=== PATIENT | female | born 1955 | race Asian ===

== ENCOUNTER 2019-11-24 09:03 | Outpatient (REF) | payer SELFPAY ==
[2019-11-24 13:41] LABS: Anion Gap 7.8 mmol/L (3-11); BUN 15 mg/dL (7-18); CO2 30.2 mmol/L (21.0-32.0); CREATININE 0.56 mg/dL (0.55-1.02); Calculated LDL 129 mg/dL; Chloride 106 mmol/L (98-107); Cholesterol 200 mg/dL (<200); Glucose 90 mg/dL (74-106); HDL Cholesterol 63 mg/dL (40-60); Potassium 3.9 mmol/L (3.5-5.1); Sodium 144 mmol/L (136-145); Triglyceride 41 mg/dL (<150)
== END 2019-11-24 09:23 ==
LOC: LBN 09:03
PROVIDERS: PCP Internal Medicine; Visit Provider Internal Medicine
DX: I10 Essential (primary) hypertension (principal)
CPT/HCPCS: 80048; 80061

== ENCOUNTER 2020-12-27 09:42 | Outpatient (REF) | payer SELFPAY ==
[2020-12-27 14:20] LABS: Anion Gap 4.7 mmol/L (3-11); BUN 12 mg/dL (7-18); CO2 29.3 mmol/L (21.0-32.0); CREATININE 0.6 mg/dL (0.55-1.02); Calculated LDL 115 mg/dL (<100); Chloride 105 mmol/L (98-107); Cholesterol 186 mg/dL (<200); Glucose 80 mg/dL (74-106); HDL Cholesterol 61 mg/dL (40-60); Potassium 3.8 mmol/L (3.5-5.1); Sodium 139 mmol/L (136-145); Triglyceride 50 mg/dL (<150)
== END 2020-12-27 09:43 | disposition home or self-care (01) ==
LOC: LBN 09:42
PROVIDERS: PCP Internal Medicine; Visit Provider Internal Medicine
DX: I10 Essential (primary) hypertension (principal)
CPT/HCPCS: 80048; 80061

== ENCOUNTER 2022-04-28 20:55 | Emergency (ER) | payer MEDICARE, SELFPAY ==
[2022-04-28 21:04] VITALS: BP 193/91; PULSE 71; RESP 16; TEMP 35.8; O2SAT 96
--- NOTE | 2022-04-28 21:15 | DI.RAD_ITS ---
Exam(s) XR ELBOW LT COMPLETE EXAM: XR ELBOW LT COMPLETE CLINICAL HISTORY: fall, elbow pain. TECHNIQUE: 2D digital imaging was performed. Three views. COMPARISON: No exams were available for comparison FINDINGS: BONES: No acute fracture is present. No bony destructive lesion is seen. JOINTS: The elbow is normally aligned. No joint effusion is seen. SOFT TISSUE: Normal. IMPRESSION: Unremarkable radiographs of the left elbow. DATA REPOSITORY: RADIATION DOSE DELIVERED:
[2022-04-28] MEDS: Acetaminophen 325 MG TAB 650 MG PO (21:29)
--- NOTE | 2022-04-28 21:30 | W.ED.GENAD ---
Discharge Plan Disposition Patient Disposition: HOME Condition: Improving Discharge Details Chief Complaint: Orthopedic Clinical Impression: Contusion of elbow Primary Care Provider: Ching Perdue ED Provider: Gerber Burger Home Meds and New Rx's Prescriptions: No Action losartan-hydrochlorothiazide 100-12.5 mg tablet 1 tab PO DAILY Qty: 90 3RF Discharge Instructions Instructions: Contusion in Adults (ED) Additional Instructions: Ice and elevate the limb, continue to use ibuprofen and/or acetaminophen as needed for pain; keep wound clean and dry. Please return to the emergency department for any worsening symptoms such as inability to move your arm worsening pain worsening swelling or signs of infection. Medical Decision Making 67-year-old female presents after fall from standing position slipped back on her left elbow, sustained superficial abrasion to left elbow, pain to left elbow, full range of motion shoulder elbow wrist and hand/fingers, neurovascular exam of limb intact, no crepitus or deformity however given level of discomfort will obtain x-ray, will administer analgesia in the form of acetaminophen. Likely contusion with simple abrasion versus must consider fracture versus dislocation less likely. 22: 14 patient resting comfortably no acute distress. Range of motion intact. Neurovascularly intact. No evidence of fracture or dislocation. Bacitracin and dressing have been applied to elbow, patient to follow-up with primary care physician, return precautions given. Likely simple contusion with abrasion. HPI General Date/Time Provider Initiated Documentation: 04/28/22 20:56. HPI Narrative: 67-year-old female presents after falling from ground-level on her left elbow, sustaining superficial abrasion to left elbow, also endorses left hip discomfort that is now getting better on its own, elbow pain worse with movement, endorse that she likely has had a tetanus booster within the last 5 to 10 years, no head injury no other Related Data Home Medications Medication Instructions Recorded Confirmed losartan 100 1 tab PO DAILY #90 tab-caps 01/12/22 04/28/22 mg-hydrochlorothiazide 12.5 mg tablet Previous Rx's Medication Instructions Recorded losartan 100 1 tab PO DAILY #90 tab-caps 01/12/22 mg-hydrochlorothiazide 12.5 mg tablet Allergies Allergy/AdvReac Type Severity Reaction Status Date / Time No Known Drug Allergies Allergy Verified 04/28/22 21:12 General Stated Complaint: Orthopedic TONY: 4 Review of Systems Narrative: Review of Systems Constitutional: negative Eyes: negative ENT: negative Cardiovascular: negative Respiratory: negative Gastrointestinal: negative : negative Musculoskeletal: Left elbow pain Skin: Abrasion Neurologic: negative Psych: negative PFSH All Active Problems (Updated 04/28/22 @ 22:15 by Gerber Burger MD) Contusion of elbow (Acute) Does not have health insurance (Chronic) Diverticulosis of colon (Acute) mild colonoscopy 08/03/08 Hypertension (Acute) Medical History (Updated 04/28/22 @ 22:15 by Gerber Burger MD) Hypertension Kidney stone Surgical History Ligation of fallopian tube Family History Mother Essential hypertension Father , ulcer No problems noted. Sister No problems noted. Sister No problems noted. Sister No problems noted. Brother No problems noted. Social History (Updated 11/24/19 @ 08:54 by Araseli Jefferson LPN) Smoking/Tobacco Use Status: Never Smoking risk assessment performed?: Yes Alcohol Intake: current Alcohol Intake frequency: holidays/special occasions only Drug use: Never Substance use type: does not use Household members: spouse Housing: house Number of Children: 2 Communication Needs: None current occupation: restaurant plumber's assistant What is your relationship status?: Panel score (0-1 are the most socially isolated patients): 1 What type of physical activity do you participate in: none Seatbelt use: always Working smoke detector in home: Yes Carbon monox detector in home: Yes Do you feel safe at home: Yes Do you feel safe in your relationship?: Yes Exam Narrative Exam Narrative: Physical Examination General: alert, awake, cooperative, resting comfortably, no acute distress HEENT: normocephalic, atraumatic; PERRL, EOM intact, conjunctiva normal; no nasal discharge; moist mucous membranes, oral and pharyngeal mucosa normal, tolerating secretions Neck: supple, trachea midline; full ROM Chest: normal to inspection Respiratory: normal respiratory effort, speaking in full sentences, clear to auscultation, no wheezing, rales or rhonchi Cardiac: regular rate, regular rhythm, S1S2 intact, no murmurs rubs or gallops GI: abdomen soft, non-tender, non-distended; no palpable mass or hepatosplenomegaly Skin: Superficial non gaping linear abrasion to left elbow Neuro: AAOx3, normal speech, moving all extremities Extremities: Full range of motion left shoulder left wrist fingers, median radial and ulnar nerve distribution intact, radial pulse intact, soft compartments, no crepitus or deformity to upper extremity on the left, range of motion flexion extension and elbow intact, no effusion Psych: Appropriate mood and affect Course Vital Signs Vital signs: Vital Signs Temperature 35.8 C L 04/28/22 21:04 Pulse 71 04/28/22 21:04 Respiratory Rate 16 04/28/22 21:04 Blood Pressure 193/91 H 04/28/22 21:04 Pulse Oximetry 96 04/28/22 21:04 Temperature 35.8 C L 04/28/22 21:04 Temperature Source Temporal Artery Scan 04/28/22 21:04 Pulse 71 04/28/22 21:04 Respiratory Rate 16 04/28/22 21:04 Respiratory Effort Non-Labored 04/28/22 21:08 Blood Pressure 193/91 H 04/28/22 21:04 Blood Pressure Position Sitting 04/28/22 21:04 Pulse Oximetry 96 04/28/22 21:04 Oxygen Delivery Method Room Air 04/28/22 21:04 Oxygen Flow Rate 0 04/28/22 21:04 Pain Level 4 04/28/22 21:08 PAWSS Have you Been Recently Intoxicated or Drunk Within the Last 30 days?: No Have you Ever Experienced Previous Episodes of Alcohol Withdrawal?: No Have you ever Experienced Withdrawal Seizures?: No Have you ever Experienced Delirium Tremens(DT)s?: No Have you ever undergone Alcohol Rehabilitation Treatment (i.e, inpt ot outpatient treatment programs)?: No Have you ever Experienced Blackouts?: No Have you ever Combined Alcohol with other Downers within the last 90 days?: No Have you ever Combined Alcohol with any other Substance of Abuse during the last 90 days?: No Positive Blood Alcohol level on Presentation? [PCS.BAL]: No Evidence of Increased Autonomic Activity (i.e. HR>120, tremor, sweating, agitation, nausea)?: No Result: 0
--- NOTE | 2022-04-28 22:08 | DI.VRAD_ITS ---
PROCEDURE INFORMATION: Exam: XR Left Elbow Exam date and time: 04/28/2022 21:30 Age: 67 years old Clinical indication: Pain; Left; Patient HX: Fall, elbow TECHNIQUE: Imaging protocol: Radiologic exam of the Left elbow. Views: 3 or more views. COMPARISON: No relevant prior studies available. FINDINGS: Bones/joints: No acute fracture or subluxation. Soft tissues: No significant joint effusion. IMPRESSION: No acute bony pathology. Dictated and Authenticated by: Marlen Roberto MD. Ordering:SUYAPA aMyes MD
== END 2022-04-28 22:28 | disposition home or self-care (01) ==
PROVIDERS: Emergency Provider Emergency Medicine; PCP Internal Medicine
DX: S50.02XA Contusion of left elbow, initial encounter (principal); W18.39XA Other fall on same level, initial encounter
CPT/HCPCS: 99283; 73080

== ENCOUNTER 2022-05-01 11:53 | Outpatient (REF) | payer MEDICARE, SELFPAY ==
--- NOTE | 2022-05-01 11:00 | PAPFT_PTH ---
PATIENT: Jaime Cagle LOC: [facility] U#:[id number] AGE/SX: 67/F ROOM: RE05/01/[address]: Ching Perdue MD : 1955 BED: DIS: 05/01/2022 SPEC #: [id number] RECD: 05/01/22 17:27 STATUS: BRAIN REQ #: [id number] NICHOLAS: 05/01/22 11:[address]: Ching Perdue DEPT: [facility] Cytology RECD BY: Estephanie Malik Tissues: 1 - CX/ENDOCX FOR PAP SMEARS Procedures: PAP THIN PREP/[facility] Screening HPV DNA PROBE Comments: [id number]
== END 2022-05-01 11:54 | disposition home or self-care (01) ==
LOC: LBN 11:53
PROVIDERS: PCP Internal Medicine; Visit Provider Internal Medicine
DX: Z11.51 Encounter for screening for human papillomavirus (HPV); Z01.411 Encounter for gynecological examination (general) (routine) with abnormal findings
CPT/HCPCS: 88142; 87624

== ENCOUNTER → 2022-05-10 01:50 | Outpatient (CLI) | payer MEDICARE, SELFPAY ==
--- NOTE | 2022-05-10 06:45 | DI.DEXA_ITS ---
Exam(s) XR DEXA BONE DENSITY W/WO JULES EXAM: XR DEXA BONE DENSITY W/WO JULES CLINICAL HISTORY: SCREENING FOR OSTEOPOROSIS IN POSTMENOPAUSAL WOMAN,Z78.0 TECHNIQUE: COMPARISON: No exams were available for comparison FINDINGS: Lateral Spine Image: Unremarkable. No compression deformities identified. Left hip: Total T-Score: -1.9 Total Z-Score: -0.7 T- and Z-scores: The findings are consistent with osteopenia and increased fracture risk. There is o steoporosis in the femoral neck with a T-score of -2.6. Lumbar Spine: Total T-Score: -3.4 Total Z-Score: -1.6 T- and Z-scores: Findings are consistent with osteoporosis. IMPRESSION: Findings of osteoporosis in the lumbar spine and left femoral neck.
== END ==
PROVIDERS: PCP Internal Medicine; Visit Provider Internal Medicine
DX: M81.0 Age-related osteoporosis without current pathological fracture (principal); Z78.0 Asymptomatic menopausal state
CPT/HCPCS: 77080

== ENCOUNTER 2022-05-16 02:48 | Outpatient (CLI) | payer MEDICARE, SELFPAY ==
[2022-05-16 09:17] LABS: Anion Gap 5.1 mmol/L (3-11); BUN 19 mg/dL (7-18); CO2 31.9 mmol/L (21.0-32.0); CREATININE 0.6 mg/dL (0.55-1.02); Calcium 8.4 mg/dL (8.5-10.1); Calculated LDL 108 mg/dL (<100); Chloride 107 mmol/L (98-107); Cholesterol 172 mg/dL (<200); Glucose 88 mg/dL (74-106); HDL Cholesterol 54 mg/dL (40-60); Potassium 3.6 mmol/L (3.5-5.1); Sodium 144 mmol/L (136-145); Triglyceride 51 mg/dL (<150)
== END 2022-05-16 02:49 | disposition home or self-care (01) ==
LOC: LBO 02:49
PROVIDERS: PCP Internal Medicine; Visit Provider Internal Medicine
DX: I10 Essential (primary) hypertension (principal)
CPT/HCPCS: 36415; 80048; 80061

== ENCOUNTER → 2022-06-04 02:02 | Outpatient (CLI) | payer MEDICARE, SELFPAY ==
--- NOTE | 2022-06-04 11:55 | DI.MAMMO_ITS ---
Exam(s) MAMMO SCREENING EXAM: MAMMO SCREENING CLINICAL HISTORY: screening, Z12.39. TECHNIQUE: Bilateral full field digital CC and MLO mammographic images were obtained with 3D tomosyn thesis and utilizing computer aided detection (CAD). COMPARISON: Prior mammograms were reviewed, the most recent being 2014. FINDINGS: There has been no significant change in the appearance and distribution of the fibroglandular tissue There are no new spiculated masses nor malignant appearing microcalcification groups. There is no significant architectural distortion nor skin thickening-retraction. IMPRESSION: No radiographic evidence of malignancy. BI-RADS Category 1 - Negative Breast Density - Category B - Scattered areas of fibroglandular density Breast density Category C or D implies that the patient has dense breast tissue. Dense breast tissue can make it harder to find cancer on a mammogram. Dense breast tissue is also associated with an incr eased risk of breast cancer. This information about the result of the mammogram report was provided to the patient to raise their awareness. Use this report when you speak with the patient about their risks for breast cancer, which includes their family history. At that time, you may recommend additional screening tests (Ultrasoun d or MRI) as these tests may add significant information. A negative radiographic report should not delay biopsy if a dominant or clinically suspicious mass is present. Up to ten percent of cancers are not identified on mammography. A negative report may reinforce clinical impression. Adenosis and dense breasts may obscure an underlying neoplasm. False positive reports average 6 to 10%. Patient will receive a letter notifying them of these results.
== END ==
PROVIDERS: PCP Internal Medicine; Visit Provider Internal Medicine
DX: Z12.31 Encounter for screening mammogram for malignant neoplasm of breast (principal)
CPT/HCPCS: 77063; 77067

== ENCOUNTER → 2022-10-16 07:36 | Outpatient (BNVA) | payer MEDICARE, SELFPAY | PROVIDERS: PCP Nurse Practitioner Adult Health; Referring Provider Nurse Practitioner Adult Health; Visit Provider Surgery | DX: Z12.11 Encounter for screening for malignant neoplasm of colon (principal) ==

== ENCOUNTER 2022-12-03 08:13 | Day surgery (SDC) | payer MEDICARE, SELFPAY ==
[2022-12-03 08:44] VITALS: BP 116/104; PULSE 64; RESP 16; TEMP 36.4; O2SAT 100
[2022-12-03] MEDS: Lactated Ringers 1,000 ML 80 ML IV (08:52)
--- NOTE | 2022-12-03 09:10 | ANES.PREOP_ITS ---
General Info Date of Service Date Performed: 12/03/22 Height: 4 ft 11.5 in Weight: 57.2 kg Body Mass Index (BMI): 25.0 Surgical Procedure: Operation Date: 12/03/22 09:50 Proposed Procedure Side Surgeon p Colonoscopy Shiraz Morales MD Meds Allergies and Home Medications Allergies Allergy/AdvReac Type Severity Reaction Status Date / Time No Known Drug Allergies Allergy Verified 12/03/22 08:39 Home Medication Medication Instructions Recorded losartan 100 1 tab PO DAILY #90 tab-caps 01/12/22 mg-hydrochlorothiazide 12.5 mg tablet bisacodyl 5 mg tablet,delayed 5 mg PO ONCE colonscopy bowel prep 10/16/22 release (Dulcolax (bisacodyl)) #4 tabs polyethylene glycol 3350 17 238 g PO ONCE colonoscopy prep 10/16/22 gram/dose oral powder #238 grams Current Visit Medications: Current Medications Generic Name Dose Route Start Last Admin Trade Name Freq PRN Reason Stop Dose Admin Ringer's Solution 1,000 mls @ 80 mls/hr 12/03/22 06:00 12/03/22 08:52 IV 12/30/22 23:59 80 mls/hr INFUSION MACHELLE Administration IV Miscellaneous Supplies 1 each 12/03/22 06:00 Iv Access IV 12/30/22 23:59 DIRECTED MACHELLE Sodium Chloride 0 ml 12/03/22 06:00 Normal Saline Flush 10 Ml Syr IV 12/30/22 23:59 PRN PRN Sodium Chloride 0 ml 12/03/22 06:00 Normal Saline 10 Ml Vial IJ 12/30/22 23:59 DIRECTED PRN Sterile Water 0 ml 12/03/22 06:00 Water,Injection,Sterile 10 Ml Vial IJ 12/30/22 23:59 DIRECTED PRN PFSH Active Problems Active Problems: Problem Status Onset Code Hypertension I10 Diverticulosis of colon K57.30 Urinary urgency R39.15 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 ~04/2022 M81.0 Medical History Medical History Contusion of elbow Does not have health insurance Hypertension Kidney stone Surgical History Surgical History (Updated 12/03/22 @ 08:39 by Pao Ugarte) Hx of colonoscopy Ligation of fallopian tube Tobacco Smoking/Tobacco Use Status: Never Alcohol Alcohol Intake: current Alcohol intake frequency: holidays/special occasions only Substance Use Substance use: Never Substance use type: does not use Vital Signs and Lab Results Vital Signs Most Recent Vital Signs in EMR: Most Recent Vital Signs Temp Pulse Resp BP Pulse Ox 36.4 C L 64 16 116/104 H 100 12/03/22 08:44 12/03/22 08:44 12/03/22 08:44 12/03/22 08:44 12/03/22 08:44 Lab Results Blood Type / Crossmatch: No Data to Display Complete Blood Count: No Data to Display Complete Metabolic Panel: No Data to Display Liver Function Panel: No Data to Display Coagulation Panel: No Data to Display Cardiac Panel: No Data to Display Arterial Blood Gas: No Data to Display Venous Blood Gas: No Data to Display Pancreas Panel: No Data to Display Thyroid Panel: No Data to Display Infectious Disease: 2 No Data to Display Blood Cultures: No Data to Display Toxicology Panel: No Data to Display Anesthesia Assessment and Plan Anesthesia History Personal History: No History of Anesthesia Complications Family History: No Family History of Anesthesia Complications Exercise Tolerance Exercise Tolerance: Metabolic Equivalents>4 Pertinent Negatives Pertinent Negatives: No Symptoms of GERD, No Major Cardiovascular Symptoms or Complaints, No Major Pulmonary Symptoms or Complaints and No History of CVA/TIA Cardiac & Pulmonary Exam Cardiac Exam: Normal S1/S2 Heart Sounds Pulmonary Exam: Clear Bilateral Breath Sounds Implantable Cardiac Device Does patient have a Pacemaker or an ICD?: No Airway Exam Known Difficult Airway: No Mallampati Class: 2 Mouth Opening: Normal (> 3cm) Thyromental Distance: Greater than 3 cm Neck Range of Motion: Full ROM Neck Circumference: Normal Teeth Condition: Normal Dentition, Loose or Chipped (Chipped right back upper tooth) and Removable Dentures/Plates Upper (Single tooth appliance) ASA Classification ASA Score: ASA 2 Emergency Case?: No NPO Status NPO Status: NPO Clears >2 hours, Solids >8 hours Anesthesia Plan Resuscitation Status: Full Code Anesthesia Technique: General Anesthesia Airway Planned: Natural Airway Monitors Used: Standard Monitors
[2022-12-03 09:15] VITALS: BP 110/67; PULSE 58; RESP 16; O2SAT 99
[2022-12-03 09:17] VITALS: BMI 25.0
--- NOTE | 2022-12-03 10:28 | W.PM.HP.N ---
Date of service: 12/03/22 Time of Service: 10:28 Assessment and Plan Assessment and plan (1) Diverticulosis of colon: Status: Acute Assessment and plan: 67 yo woman due for surveillance. HD stable. PLan: c-scope History of Present Illness Narrative: 67 yo woman with no family history and no prior issues on previous colonoscopies. Diverticulosis seen on prior in 2007. Tubal ligation surgical history. Due for surveillance. No Symptoms. 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 Sister No problems noted. Sister No problems noted. Sister No problems noted. Brother No problems noted. Social History Smoking/Tobacco Use Status: Never Smoking risk assessment performed?: Yes Alcohol Intake: current Alcohol Intake frequency: holidays/special occasions only Drug use: Never Substance use type: does not use Household members: spouse Housing: house Number of Children: 2 Communication Needs: None current occupation: restaurant sheet metal smith What is your relationship status?: How often do you talk on the phone with friends or family?: three or more times per week Panel score (0-1 are the most socially isolated patients): 2 What type of physical activity do you participate in: none, walking and regular exercise Duration: 15-30 minutes/day Seatbelt use: always Working smoke detector in home: Yes Carbon monox detector in home: Yes Do you feel safe at home: Yes Do you feel safe in your relationship?: Yes Meds Allergies and Home Medications Allergies Allergy/AdvReac Type Severity Reaction Status Date / Time No Known Drug Allergies Allergy Verified 12/03/22 08:39 Home Medications Medication Instructions Recorded Confirmed Type losartan 100 1 tab PO DAILY #90 tab-caps 01/12/22 12/03/22 Rx mg-hydrochlorothiazide 12.5 mg tablet bisacodyl 5 mg tablet,delayed 5 mg PO ONCE colonscopy bowel prep 10/16/22 12/03/22 Rx release (Dulcolax (bisacodyl)) #4 tabs polyethylene glycol 3350 17 238 g PO ONCE colonoscopy prep 10/16/22 12/03/22 Rx gram/dose oral powder #238 grams Exam Narrative Exam Narrative: Gen: Nontoxic and comfortable Neuro: AxOx 3 Psych: Good mood and affect ChesT: Nonlabored breathing Heart: Regular Results Last Vital Signs Temp 97.5 F L 12/03/22 08:44 Pulse 58 L 12/03/22 09:15 Resp 16 12/03/22 09:15 BP 110/67 12/03/22 09:15 Pulse Ox 99 12/03/22 09:15 Time Spent Time spent with Patient: <40 minutes Time was spent: counseling the patient
[2022-12-03 11:00] VITALS: BP 106/69; PULSE 84; RESP 14; TEMP 36.4; O2SAT 99
--- NOTE | 2022-12-03 11:00 | W.COLOREPORT ---
Date of service: 12/03/22 Time of Service: 11:00 Colonoscopy Report Procedure Description: Procedures performed: 1. Colonoscopy Preoperative diagnosis: Surveillance colonoscopy Postoperative diagnosis: Pandiverticulosis Surgeon: Shaq Morales Anesthesia: Leticia Indication for procedure: 67-year-old woman without any symptoms, prior colonoscopy normal, no family history of colon cancer due for surveillance. Findings: Normal terminal ileum.? Extensive moderate diverticular disease throughout the entire colon.? Normal Rectum. Surveillance/follow-up recommendations: 10 years Complications: None Blood loss: Minimal Prep: Excellent Procedure in detail: Written consent was obtained from the patient who was in agreement with the risks, benefits and indications of the procedure.? We went to the endoscopy suite and laid the patient in left lateral decubitus position.? Anesthesia was administered which was tolerated well.? A timeout was performed and when we are all in agreement we began the procedure. Digital rectal exam and visual examination was performed and within normal limits.? A well?lubricated colonoscope was advanced without difficulty all the way to the cecum identified by the ileocecal valve, and triangular folds and appendiceal orifice.? Terminal ileum was normal.? It was then slowly withdrawn.?? Retroflexion was performed in the rectum.? The findings/interventions are noted above. The scope was then removed and the patient tolerated the procedure well and was then taken back to the PACU in hemodynamically stable condition.
[2022-12-03 11:23] VITALS: BP 111/57; PULSE 77; RESP 16; TEMP 36.5; O2SAT 99
--- NOTE | 2022-12-03 11:37 | W.ANESPOSTOP ---
Postoperative Evaluation Date, Time and Location Date Performed: 12/03/22 Time Performed: 11:38 Patient Location: Day Surgery Unit Vital Signs Most Recent Imported Vital Signs: Most Recent Vital Signs Temp Pulse Resp BP Pulse Ox 36.5 C 77 16 111/57 L 99 12/03/22 11:23 12/03/22 11:23 12/03/22 11:23 12/03/22 11:23 12/03/22 11:23 Pain Score Most Recent Pain Score: Most Recent Pain Score Pain Level 0 12/03/22 11:23 Assessment Mental Status: Awake (Alert & Oriented to Patient Baseline) Airway and Respiratory Function: Patent airway with normal (patient baseline) respiratory exam Cardiovascular Function: Hemodynamically Stable Hydration Status: Adequately Hydrated Nausea & Vomiting: No Nausea or Vomiting Pain: Pt. Denies Any Pain Peripheral Nerve Block: Patient did not receive a nerve block
== END 2022-12-03 11:38 | disposition home or self-care (01) ==
PROVIDERS: PCP Nurse Practitioner Adult Health; Visit Provider Student in an Organized Health Care Education/Training Program
PROC: 0DJD8ZZ Inspection of Lower Intestinal Tract, Via Natural or Artificial Opening Endoscopic (ICD-10-PCS; CPT 45378; principal; 2022-12-03 09:45)
DX: Z12.11 Encounter for screening for malignant neoplasm of colon (principal); K57.30 Diverticulosis of large intestine without perforation or abscess without bleeding
CPT/HCPCS: G0121

== ENCOUNTER 2023-06-03 04:45 | Outpatient (CLI) | payer MEDICARE, SELFPAY ==
[2023-06-03 09:02] LABS: Anion Gap 7.7 mmol/L (3-11); BUN 14 mg/dL (7-18); CO2 29.3 mmol/L (21.0-32.0); CREATININE 0.6 mg/dL (0.55-1.02); Calculated LDL 145 mg/dL (<100); Chloride 107 mmol/L (98-107); Cholesterol 218 mg/dL (<200); Estimated GFR 98.93 (mL/min/1.73m2); Glucose 88 mg/dL (74-106); HDL Cholesterol 68 mg/dL (40-60); Potassium 3.4 mmol/L (3.5-5.1); Sodium 144 mmol/L (136-145); Triglyceride 25 mg/dL (<150)
[2023-06-03 09:55] LABS: Vitamin D 25 Total 22.5 ng/mL (30-100)
== END 2023-06-03 04:46 | disposition home or self-care (01) ==
LOC: LBO 04:45
PROVIDERS: PCP Nurse Practitioner Adult Health; Visit Provider Nurse Practitioner Adult Health
DX: I10 Essential (primary) hypertension (principal); M81.0 Age-related osteoporosis without current pathological fracture
CPT/HCPCS: 36415; 80048; 80061; 82306

== ENCOUNTER → 2024-01-17 00:54 | Outpatient (CLI) | payer OTHER, SELFPAY ==
--- NOTE | 2024-01-17 08:30 | DI.MAMMO_ITS ---
Exam(s) MAMMO SCREENING EXAM: MAMMO SCREENING CLINICAL HISTORY: screening,z12.39 TECHNIQUE: Bilateral full field digital CC and MLO mammographic images were obtained with 3D tomosyn thesis and utilizing computer aided detection (CAD). COMPARISON: Available for comparison. FINDINGS: Masses/Architectural Distortion: None seen. Microcalcifications: No suspicious pleomorphic-type are seen. Skin Thickening/Nipple Retraction: None. IMPRESSION: 1. No significant interval change with no specific features of malignancy noted. 2. Unless there is more urgent need, screening mammography is recommended, as per [employer] guidelines. BI-RADS Category 1 - Negative Breast Density - Category B - Scattered areas of fibroglandular density Breast density category C or D implies that the patient has dense breast tissue. Dense breast tissue is very common and is not abnormal but dense breast tissue can make it harder to find cancer on a ma mmogram. Also, dense breast tissue may increase their breast cancer risk. This information about the result of the mammogram report was provided to the patient to raise their awareness. Use this report when you speak with the patient about their risks for breast cancer, which includes their family hist ory. At that time, you may recommend for more screening tests (Ultrasound or MRI) as they might be us eful based on their risk. A negative radiographic report should not delay biopsy if a dominant or clinically suspicious mass is present. Up to ten percent of cancers are not identified on mammography. A negative report may reinforce clinical impression. Adenosis and dense breasts may obscure an underlying neoplasm. False positive reports average 6 to 10%. Patient will receive a letter notifying them of these results.
== END ==
PROVIDERS: PCP Nurse Practitioner Adult Health; Visit Provider Nurse Practitioner Adult Health
DX: Z12.31 Encounter for screening mammogram for malignant neoplasm of breast (principal)
CPT/HCPCS: 77063; 77067

== ENCOUNTER 2024-01-21 04:25 | Outpatient (CLI) | payer OTHER, SELFPAY ==
[2024-01-21 09:04] LABS: Anion Gap 5.8 mmol/L (3-11); BUN 18 mg/dL (7-18); CO2 30.2 mmol/L (21.0-32.0); CREATININE 0.6 mg/dL (0.55-1.02); Calcium 8.9 mg/dL (8.5-10.1); Chloride 108 mmol/L (98-107); Estimated GFR 98.93 (mL/min/1.73m2); Glucose 88 mg/dL (74-106); Potassium 3.6 mmol/L (3.5-5.1); Sodium 144 mmol/L (136-145)
== END 2024-01-21 04:26 | disposition home or self-care (01) ==
LOC: LBO 04:26
PROVIDERS: Absent Provider Nurse Practitioner Adult Health; PCP Nurse Practitioner Adult Health; Referring Provider Nurse Practitioner Adult Health; Visit Provider Nurse Practitioner Adult Health
DX: I10 Essential (primary) hypertension (principal); E78.5 Hyperlipidemia, unspecified; E87.6 Hypokalemia; M81.0 Age-related osteoporosis without current pathological fracture
CPT/HCPCS: 36415; 80048

== ENCOUNTER 2025-07-05 16:47 | Outpatient (REF) | payer MEDICARE, SELFPAY ==
[2025-07-05 21:49] LABS: Anion Gap 6.0 mmol/L (3-11); BUN 20 mg/dL (7-18); CO2 32.0 mmol/L (21.0-32.0); Calcium 9.1 mg/dL (8.5-10.1); Chloride 106 mmol/L (98-107); Estimated GFR 94.15 (mL/min/1.73m2); Glucose 137 mg/dL (74-106); Potassium 3.3 mmol/L (3.5-5.1); Sodium 144 mmol/L (136-145); TSH (W/Ref FT4) 1.03 uIU/mL (0.36-3.74)
== END 2025-07-05 16:48 | disposition home or self-care (01) ==
LOC: LBN 16:47
PROVIDERS: PCP Nurse Practitioner Adult Health; Visit Provider Nurse Practitioner Adult Health
DX: I10 Essential (primary) hypertension (principal); L65.9 Nonscarring hair loss, unspecified
CPT/HCPCS: 80048; 84443

== ENCOUNTER 2025-07-19 07:46 | Outpatient (CLI) | payer MEDICARE, SELFPAY ==
--- NOTE | 2025-07-19 06:54 | DI.MAMMO_ITS ---
Exam(s) MAMMO SCREENING EXAM: MAMMO SCREENING CLINICAL HISTORY: screening,Z12.39. TECHNIQUE: Bilateral full field digital CC and MLO mammographic images were obtained with 3D tomosynthesis and utilizing computer aided detection (CAD). COMPARISON: Prior mammograms were reviewed. FINDINGS: There has been no significant change in the appearance and distribution of the fibroglandular tissue. There are no new spiculated masses nor malignant appearing microcalcification groups. There is no significant architectural distortion nor skin thickening-retraction. IMPRESSION: No radiographic evidence of malignancy. BI-RADS Category 1 - Negative Breast Density - Category B - There are scattered areas of fibroglandular density. Breast density Category C or D implies that the patient has dense breast tissue. Dense breast tissue can make it harder to find cancer on a mammogram. Dense breast tissue is also associated with an increased risk of breast cancer. This information about the result of the mammogram report was provided to the patient to raise their awareness. Use this report when you speak with the patient about their risks for breast cancer, which includes their family history. At that time, you may recommend additional screening tests (Ultrasound or MRI) as these tests may add significant information. A negative radiographic report should not delay biopsy if a dominant or clinically suspicious mass is present. Up to ten percent of cancers are not identified on mammography. A negative report may reinforce clinical impression. Adenosis and dense breasts may obscure an underlying neoplasm. False positive reports average 6 to 10%. Patient will receive a letter notifying them of these results.
== END 2025-07-19 08:06 ==
PROVIDERS: PCP Nurse Practitioner Adult Health; Visit Provider Nurse Practitioner Adult Health
DX: Z12.31 Encounter for screening mammogram for malignant neoplasm of breast (principal)
CPT/HCPCS: 77063; 77067

== ENCOUNTER 2025-09-03 03:25 | Outpatient (CLI) | payer MEDICARE, SELFPAY ==
[2025-09-03 09:12] LABS: Anion Gap 7.6 mmol/L (3-11); BUN 14 mg/dL (7-18); CO2 27.4 mmol/L (21.0-32.0); Calcium 8.8 mg/dL (8.5-10.1); Chloride 106 mmol/L (98-107); Estimated GFR 97.71 (mL/min/1.73m2); Glucose 91 mg/dL (74-106); Potassium 3.6 mmol/L (3.5-5.1); Sodium 141 mmol/L (136-145)
== END 2025-09-03 03:26 | disposition home or self-care (01) ==
LOC: LBO 03:25
PROVIDERS: PCP Nurse Practitioner Adult Health; Referring Provider Nurse Practitioner Adult Health; Visit Provider Nurse Practitioner Adult Health
DX: E87.6 Hypokalemia (principal)
CPT/HCPCS: 36415; 80048